=== PATIENT | female | born 1970 | race Caucasian/White ===

== ENCOUNTER 2017-01-16 09:30 | Emergency (ER) | payer OTHER ==
[2017-01-16 09:39] VITALS: RESP 18
--- NOTE | 2017-01-16 09:50 | EDPHY ---
H & P Stated Complaint: CHEST PRESSURE AND FLUTTERING OFF AND ON, MENAPAUSE SX HPI/ROS: CHIEF COMPLAINT: Chest pain, Palpitations HISTORY OF PRESENT ILLNESS: The patient is a 46-year-old female presenting with chest tightness and palpitations. The patient has experienced palpitations and night sweats for the past few months. She was started on a Progesterone cream which improved the night sweats. The patient returned from [facility] 1 month ago. While she was there she had to take multiple breaks while exercising. Her exercise capacity felt depreciated. Last night the patient developed chest pain and palpitations that remained constant throughout the night. She recently stopped eating sugar and started eating 100% dark chocolate. Yesterday after work she ate more chocolate than usual and noticed an increase in belching. This morning she continues to have slight chest discomfort and has to take more breaths than usual. She notes a sharp, left sided abdominal discomfort that occurs every few hours. She denies nausea, vomiting, diarrhea, recent cough or cold. No personal history of hypertension, diabetes, hyperlipidemia, or tobacco use. REVIEW OF SYSTEMS: A ten point review of systems was performed and is negative with the exception of the items mentioned in the HPI. Past medical history: Hypothyroid, Gastritis, Hiatal hernia- endoscopy. Past surgical history: Denies. Family history: Father leaking valve, Grandfather with DM, Grandmother with Angina. Social history: Rare alcohol use. No tobacco use. No illicit drug use. . General Appearance: Alert. Vital signs reviewed. Blood pressure 151/60, heart rate 111 at triage. Eyes: Pupils equal and round, no conjunctival injection, no discharge. Anicteric. ENT, Mouth: Mucous membranes are moist, no oropharyngeal erythema or edema. Neck: No lymphadenopathy, supple. Respiratory: Lungs are clear to auscultation; no wheezes, rales, or rhonchi. Cardiovascular: Tachycardic, regular rhythm; no murmur, rub, or gallop. Gastrointestinal: Abdomen is soft and nontender, no masses or organomegaly, bowel sounds normal. Skin: Warm and dry, no rashes on exposed skin, normal color. Back: Nontender to palpation over the thoracolumbar spine. No CVAT. Extremities: No lower extremity edema, no calf tenderness or swelling. Neurological: Alert and oriented. Moving all four extremities easily and equally. Psychiatric: Normal affect. Source: Patient - Personal History LMP (Females 10-55): Now Current Tetanus/Diphtheria Vaccine: Yes Current Tetanus Diphtheria and Acellular Pertussis (TDAP): Yes - Medical/Surgical History Hx Asthma: No Hx Chronic Respiratory Disease: No Hx Diabetes: No Hx Cardiac Disease: No Hx Renal Disease: No Hx Cirrhosis: No Hx Alcoholism: No Hx HIV/AIDS: No Hx Splenectomy or Spleen Trauma: No Other PMH: HYPOTHYROID, GERD, - Social History Smoking Status: Never smoked Constitutional: Initial Vital Signs Temperature (C) 36.9 C 01/16/17 09:36 Heart Rate 111 H 01/16/17 09:36 Respiratory Rate 18 01/16/17 09:36 Blood Pressure 151/60 H 01/16/17 09:36 O2 Sat (%) 99 01/16/17 09:36 O2 Delivery Mode Room Air Allergies/Adverse Reactions: No Known Allergies Allergy (Unverified 01/16/17 09:39) Home Medications: Medication Instructions Recorded Levothyroxine [Synthroid 88 mcg 88 mcg PO DAILY06 01/16/17 (*)] Progesterone [Progesterone in Oil] 50 mg 01/16/17 Medical Decision Making - Diagnostics EKG Interpretation: 12 lead EKG is interpreted in Trace master View by emergency department physician. Imaging: Discussed imaging studies w/ edge sander Radiologist, I viewed and interpreted images myself ED Course/Re-evaluation: Patient returned from [facility] 1 month ago. During her travels she noticed decreased exercise capacity. Last night patient had constant chest tightness and palpitations, unrelieved by 81mg Aspirin. She received 324mg Aspirin in the ED. Plan for cardiac workup including chest x-ray, D-dimer, and Troponin. I ordered laboratory studies--Chemistry, BMP, CBC, Magnesium, and TSH. The 12 lead EKG was interpreted by myself: Sinus tachycardia, rate 104. See hard copy and/or "tracemaster" electronic copy for interpretation. Chest x-ray. Lab work is unremarkable. D-dimer is negative. Troponin is normal. Electrolytes are normal. 12:45 p.m.: I discussed findings with the patient. HR is now down to 87. She tells me she in under a lot of stress at the moment and thinks her chest tightness may be related to stress and recent increase in caffeine. The patient feels comfortable going home. I am recommending follow up with primary care physician. We reviewed the danger signs that should prompt her to return. I do not think that her symptoms represent an acute coronary syndrome and have not found evidence of cardiac ischemia. Aside from an initial tachycardia she has not had cardiac arrhythmia. Labs are normal. She is low risk for PE based upon Wells criteria and has a negative D-dimer, making PE unlikely. There is no evidence of pulmonary infection . There are no signs of pericarditis. - Data Points Laboratory Results: Laboratory Results 01/16/17 09:47 01/16/17 09:47 Medications Given: Discontinued Medications Aspirin (Aspirin) 324 mg PO EDNOW ONE Stop: 01/16/17 10:11 Last Admin: 01/16/17 10:15 Dose: 324 mg Departure - Departure Disposition: Home, Routine, Self-Care Clinical Impression: Chest pain Condition: Good Instructions: Chest Pain (ED), Palpitations (ED) Additional Instructions: Your work up today was normal. I recommend you followup with a Industrial [employer] Operator for further testing if you continue to have palpitations. You have been referred to a [facility] Operator below. I recommend you call Dr. Andre's office today. Tell them you were in the Emergency Department today and see if you can schedule a visit sooner than two weeks. Referrals: Dre Andre MD [Primary Care Provider] - As per Instructions Beny Mcconnell MD [Medical Doctor] - As per Instructions (Cardiology) Report Scribed for: Marycruz Ferrell Report Scribed by: Yvette Dawson Date of Report: 01/16/17 Time of Report: 09:55 Physician Review and Approval Statement: 01/16/17 09:50 Portions of this note were transcribed by the medical certification specialist. I, Dr. Marycruz Ferrell, personally performed the history, physical exam, and medical decision- making; and confirmed the accuracy of the information in the transcribed note.
--- NOTE | 2017-01-16 09:51 | CPEKG ---
Heart Rate: 104 RR Interval: 577 P-R Interval: 124 QRSD Interval: 80 QT Interval: 336 QTC Interval: 442 P [place]: 66 QRS [place]: 62 T Wave [place]: -38 EKG Severity - OTHERWISE NORMAL ECG - EKG Impression: SINUS TACHYCARDIA Electronically Signed By: Marycruz Ferrell 16-Jan-2017 15:56:14
[2017-01-16 09:56] LABS: % IMMATURE GRANULYOCYTES 0.1 % (0.0-1.1); ABSOLUTE IMMATURE GRANULOCYTES 0.01 10^3/uL (0.00-0.10); ADD DIFF? NO; ADD MORPH? NO; ADD SCAN? NO; ATYPICAL LYMPHOCYTE FLAG 20 (0-99); FRAGMENT RBC FLAG 0 (0-99); HEMATOCRIT 48.1 % (38.0-47.0); LEFT SHIFT FLG 0 (0-99); LIPEMIA HEMOLYSIS FLAG 80 (0-99); MEAN CELL HEMOGLOBIN CONCENTR. 33.3 g/dL (32.4-36.7); MEAN CELL VOLUME 96.2 fL (81.5-99.8); MEAN PLATELET VOLUME 11.1 fL (8.7-11.7); PLATELET CLUMPS FLAG 0 (0-99); PLATELET COUNT 229 10^3/uL (150-400); RED CELL DISTRIBUTION WIDTH 11.9 % (11.5-15.2)
[2017-01-16 10:04] LABS: ANION GAP 14 mEq/L (8-16); CALCIUM 9.6 mg/dL (8.5-10.4); CARBON DIOXIDE 27 mEq/l (22-31); CHLORIDE 100 mEq/L (97-110); CREATININE 0.9 mg/dL (0.6-1.0); GLOMERULAR FILTRATION RATE > 60; GLUCOSE 116 mg/dL (70-100); POTASSIUM 3.5 mEq/L (3.5-5.2); SODIUM 141 mEq/L (134-144)
[2017-01-16] MEDS ORDERED: ASPIRIN 81 MG CHEWABLE TAB PO ONE (10:10)
[2017-01-16 10:17] LABS: TROPONIN I < 0.012 ng/mL (0.000-0.034)
[2017-01-16 10:21] LABS: MAGNESIUM 2.2 mg/dL (1.6-2.3)
[2017-01-16 13:12] VITALS: BP 118/74; PULSE 68; TEMP 97.9; O2SAT 96
== END 2017-01-16 13:12 | disposition home or self-care (01) ==
DX: R07.9 Chest pain, unspecified (principal)

== ENCOUNTER → 2017-01-24 | Outpatient (CLI) | payer OTHER | LOC: FIMAGING 13:23 | PROVIDERS: ATTEND Internal Medicine | DX: Z12.31 Encounter for screening mammogram for malignant neoplasm of breast (principal) | CPT/HCPCS: G0202 ==

== ENCOUNTER → 2018-11-01 | Outpatient (CLI) | payer OTHER | LOC: FIMAGING 12:56 ==